=== PATIENT | female | born 1940 | race Caucasian/White ===

== ENCOUNTER 2020-12-23 16:06 | Emergency (ER) | payer OTHER ==
[~2020-12-23] VITALS: Ht 139.7 cm; Wt 59.0 kg
[~2020-12-23 16:06] MED LIST: COZAAR25 MG; GLIMEPIRIDE1 MG
[2020-12-23] MEDS ORDERED: GLIMEPIRIDE2 M1 (16:16)
[2020-12-23] MEDS ORDERED: FENOFIBRATE50 MG (16:16)
[2020-12-23] MEDS ORDERED: SIMVASTATIN5 MG (16:17)
[2020-12-23] MEDS ORDERED: COZAAR25 MG (16:17)
== END 2020-12-23 20:33 | disposition home or self-care (01) ==
LOC: ER 16:06
DX: R42 Dizziness and giddiness (principal)